=== PATIENT | male | born 1950 | race Caucasian/White ===

== ENCOUNTER 2020-08-01 20:40 | Observation (INO) ==
[2020-08-01] MEDS ORDERED: Ondansetron 4 MG/2 ML VIAL IVP ONE (21:20)
[2020-08-01] MEDS ORDERED: 0.9 % Sodium Chloride 1,000 ML IVC ONE (21:20)
[2020-08-01] MEDS ORDERED: Isovue-370 500 ML BOTTLE IVP ONE (21:20)
[2020-08-01 21:39] LABS: Basophils % 0.3 %; Eosinophils % 0.1 %; Hematocrit 37.8 % (37.5-50.1); Hemoglobin 13.4 g/dL (12.9-16.9); Immature Granulocytes % 0.9 % (0-4); Lymphocytes # 1.2 K/mcL (0.6-4.6); Lymphocytes % 7.8 %; Mean Corpuscular HGB Conc 35.4 g/dL (31.6-35.5); Mean Corpuscular Volume 90.2 fL (83.0-100.0); Mean Platelet Volume 10.1 fL (9.4-12.4); Monocytes # 0.6 K/mcL (0.0-1.3); Monocytes % 3.9 %; Neutrophils # 12.9 K/mcL (1.6-8.9); Platelet Count 175 K/mcL (140-400); Red Blood Count 4.19 M/mcL (4.19-5.50); Red Cell Distribution Width 12.4 % (11.5-14.5); White Blood Count 14.8 K/mcL (4.3-11.1)
[2020-08-01 22:00] LABS: Alanine Aminotransferase 18 Units/L (7-52); Albumin 4.5 g/dL (3.5-5.7); Albumin/Globulin Ratio 1.3 (1.1-2.2); Alkaline Phosphatase 65 Units/L (34-104); Aspartate Amino Transferase 15 Units/L (13-39); BUN/Creatinine Ratio 22 (6-26); Bilirubin,Total 2.3 mg/dL (0.3-1.0); Blood Urea Nitrogen 19 mg/dL (8-23); Calcium 10.2 mg/dL (8.6-10.3); Carbon Dioxide 18 mEq/L (23-29); Chloride 97 mEq/L (98-107); Globulin 3.5 g/dL (2.4-3.5); Glucose 297 mg/dL (70-105); Lipase < 3 Units/L (11-82); Magnesium 1.5 mg/dL (1.6-2.6); Osmolality,Calculated 287 (280-300); Potassium 3.2 mEq/L (3.5-5.1); Sodium 132 mEq/L (136-145); eGFR For African Americans > 60 (> 60); eGFR For Non-African Americans > 60 (> 60)
[2020-08-01 22:26] LABS: Bilirubin,Urine Negative (Negative); Blood,Urine Small (Negative); Clarity,Urine Clear (Clear); Color,Urine Yellow (Yellow); Glucose,Urine (UA) 500 mg/dL (Normal); Ketones,Urine 40 mg/dL (Negative); Leukocyte Esterase,Urine Negative (Negative); Nitrite,Urine Negative (Negative); PH,Urine 7.5 pH Units (5.0-8.0); Protein,Urine >=300 mg/dL (Neg-Trace); Specific Gravity,Urine 1.025 (1.010-1.025); Urobilinogen,Urine Normal (Normal)
[2020-08-01 22:33] LABS: Bacteria,Urine Few per hpf (None-Few); Mucus,Urine Few per lpf (None-Few); RBC,Urine 0-3 per hpf (0-3); Squamous Epithelial Cell,Urine Few per hpf (None-Few); WBC,Urine 0-3 per hpf (0-3)
[2020-08-02] MEDS ORDERED: 0.9 % Sodium Chloride 1,000 ML IVC ONE (00:57)
[2020-08-02] MEDS ORDERED: cefTRIAXone 1,000 MG in Water for inj. (sterile) 10 ML IVP ONE (00:59)
[2020-08-02] MEDS ORDERED: Azithromycin 500 MG in 0.9 % Sodium Chloride 250 ML IVPB ONE (00:59)
[2020-08-02] MEDS ORDERED: *HR* FentaNYL (PF) 100 MCG/2 ML VIAL IVP ONE (01:00)
[2020-08-02] MEDS ORDERED: Ondansetron 4 MG/2 ML VIAL IVP ONE (01:21)
[2020-08-02] MEDS ORDERED: *HR* OxyCODONE/APAP 5/325 TABLET PO ONE (01:22)
[2020-08-02 02:36] LABS: Adenovirus Not Detected (Not Detect); Bordetella Pertussis Not Detected (Not Detect); Chlamydophila pneumoniae Not Detected (Not Detect); Coronavirus 229E Not Detected (Not Detect); Coronavirus HKU1 Not Detected (Not Detect); Coronavirus NL63 Not Detected (Not Detect); Coronavirus OC43 Not Detected (Not Detect); Human Metapneumovirus Not Detected (Not Detect); Human Rhinovirus/Enterovirus Not Detected (Not Detect); Influenza A Subtype 2009 H1 Not Detected (Not Detect); Influenza B Not Detected (Not Detect); Mycoplasma pneumoniae Not Detected (Not Detect); Parainfluenza Virus 1 Not Detected (Not Detect); Parainfluenza Virus 2 Not Detected (Not Detect); Parainfluenza Virus 3 Not Detected (Not Detect); Parainfluenza Virus 4 Not Detected (Not Detect); Respiratory Syncytial Virus Not Detected (Not Detect); SARS-CoV-2 Not Detected (Not Detect)
[2020-08-02] MEDS ORDERED: Naloxone 0.4 MG/ML INJ IVP PRN (03:25)
[2020-08-02] MEDS ORDERED: Acetaminophen 325 MG TABLET PO PRN (03:25)
[2020-08-02] MEDS ORDERED: Ondansetron 4 MG/2 ML VIAL IVP PRN (03:25)
[2020-08-02] MEDS ORDERED: Ipratropium/Albuterol Neb 3 ML IH PRN (03:29)
[2020-08-02] MEDS ORDERED: *HR* Promethazine 25 MG/ML VIAL IVP PRN (04:00)
[2020-08-02] MEDS: 0.9 % Sodium Chloride 1,000 ML IVC SCH ×2 (04:05→16:09)
[2020-08-02] MEDS ORDERED: *HR* Dextrose 50 % in Water (Vial) 50 ML VIAL IVP PRN (04:21)
[2020-08-02] MEDS ORDERED: D5% in Water 1,000 ML IVC PRN (04:21)
[2020-08-02] MEDS ORDERED: Dextrose Gel 15 GM/37.5 ML TUBE PO PRN ×2 (04:21)
[2020-08-02 04:55] LABS: Protein/Creatinine Ratio,Urine 2.23 mg/mg (0.00-0.20)
[2020-08-02] MEDS: Insulin LISPRO 300 UNITS/3 ML VIAL SQ SCH ×4 (04:59→17:31)
[2020-08-02 05:25] LABS: Basophils % 0.1 %; Hematocrit 38.3 % (37.5-50.1); Hemoglobin 12.6 g/dL (12.9-16.9); Immature Granulocytes % 0.8 % (0-4); Lymphocytes # 0.9 K/mcL (0.6-4.6); Lymphocytes % 6.5 %; Mean Corpuscular HGB Conc 32.9 g/dL (31.6-35.5); Mean Corpuscular Volume 94.1 fL (83.0-100.0); Monocytes # 0.9 K/mcL (0.0-1.3); Neutrophils # 12.3 K/mcL (1.6-8.9); Platelet Count 161 K/mcL (140-400); Red Blood Count 4.07 M/mcL (4.19-5.50); Red Cell Distribution Width 12.5 % (11.5-14.5); Segmented Neutrophils % 86.6 %; White Blood Count 14.3 K/mcL (4.3-11.1)
[2020-08-02 05:30] LABS: INR 1.5; Prothrombin Time 16.5 Seconds (9.4-12.1)
[2020-08-02 05:45] LABS: BUN/Creatinine Ratio 20 (6-26); Blood Urea Nitrogen 19 mg/dL (8-23); Calcium 9.2 mg/dL (8.6-10.3); Carbon Dioxide 22 mEq/L (23-29); Chloride 101 mEq/L (98-107); Glucose 275 mg/dL (70-105); Magnesium 1.5 mg/dL (1.6-2.6); Osmolality,Calculated 292 (280-300); Phosphorous 3.8 mg/dL (2.7-4.5); Potassium 3.5 mEq/L (3.5-5.1); Sodium 135 mEq/L (136-145); eGFR For African Americans > 60 (> 60); eGFR For Non-African Americans > 60 (> 60)
[2020-08-02 07:44] LABS: Estimated Average Glucose 180 mg/dl
[2020-08-02] MEDS: carvediloL 6.25 MG TABLET PO SCH (08:13)
[2020-08-02] MEDS: Loratadine 10 MG TABLET PO SCH (08:13)
[2020-08-02] MEDS: Gabapentin 300 MG CAPSULE PO SCH ×3 (08:13→21:07)
[2020-08-02] MEDS: cefTRIAXone 1,000 MG in 0.9 % Sodium Chloride Mini Bag 100 ML IVPB SCH (08:14)
[2020-08-02] MEDS: Fluticasone Propionate Nasal 50 MCG/SPRAY BOTTLE NS SCH (08:14)
[2020-08-02] MEDS ORDERED: Azithromycin 500 MG in 0.9 % Sodium Chloride 250 ML IVPB SCH (09:00)
[2020-08-02] MEDS ORDERED: Isosorbide MONOnitrate (24 HR) 60 MG TAB.ER.24H PO SCH (21:00)
[2020-08-02] MEDS ORDERED: Finasteride 5 MG TABLET PO SCH (21:00)
[2020-08-02] MEDS ORDERED: Aspirin Enteric Coated 81 MG Tablet PO SCH (21:00)
[2020-08-03] MEDS: Artificial Tears SOLN 15 ML BOTTLE BOTH EYES SCH ×2 (05:55→07:49)
[2020-08-03 07:28] VITALS: BP 117/61
[2020-08-03] MEDS: carvediloL 6.25 MG TABLET PO SCH (07:47)
[2020-08-03] MEDS: cefTRIAXone 1,000 MG in 0.9 % Sodium Chloride Mini Bag 100 ML IVPB SCH (07:48)
[2020-08-03] MEDS: Gabapentin 300 MG CAPSULE PO SCH (07:48)
[2020-08-03] MEDS: Loratadine 10 MG TABLET PO SCH (07:48)
[2020-08-03] MEDS: Insulin LISPRO 300 UNITS/3 ML VIAL SQ SCH (07:49)
[2020-08-03] MEDS: Fluticasone Propionate Nasal 50 MCG/SPRAY BOTTLE NS SCH (07:49)
[2020-08-03 08:48] LABS: Hematocrit 34.1 % (37.5-50.1); Hemoglobin 11.5 g/dL (12.9-16.9); Mean Corpuscular HGB Conc 33.7 g/dL (31.6-35.5); Mean Corpuscular Hemoglobin 31.9 pg (28.0-33.3); Mean Corpuscular Volume 94.7 fL (83.0-100.0); Mean Platelet Volume 9.7 fL (9.4-12.4); Platelet Count 170 K/mcL (140-400)
[2020-08-03] MEDS ORDERED: INSULIN DEGLUDEC 52 UNIT SQ SCH (09:00)
[2020-08-03 09:07] LABS: BUN/Creatinine Ratio 26 (6-26); Blood Urea Nitrogen 32 mg/dL (8-23); Calcium 8.4 mg/dL (8.6-10.3); Carbon Dioxide 22 mEq/L (23-29); Chloride 107 mEq/L (98-107); Glucose 380 mg/dL (70-105); Osmolality,Calculated 303 (280-300); Potassium 3.6 mEq/L (3.5-5.1); Sodium 135 mEq/L (136-145); eGFR For African Americans > 60 (> 60); eGFR For Non-African Americans 59 (> 60)
== END 2020-08-03 10:30 | disposition home or self-care (01) ==
LOC: EMEROOARM 20:40 → 3BNU 20:40 → SUATTDRO 08-02 02:42 → 3BNU 08-02 03:05
PROVIDERS: ADMIT Internal Medicine; ATTEND Nurse Practitioner Adult Health

== ENCOUNTER 2020-12-02 08:28 | Inpatient (IN) ==
[2020-12-02] MEDS ORDERED: 0.9 % Sodium Chloride 1,000 ML IVC ONE ×2 (08:44→12:53)
[2020-12-02] MEDS ORDERED: Acetaminophen 325 MG TABLET PO ONE (08:46)
[2020-12-02 09:08] LABS: Basophils % 0.4 %; Eosinophils # 0.1 K/mcL (0.0-0.6); Eosinophils % 0.6 %; Hematocrit 36.2 % (37.5-50.1); Hemoglobin 12.1 g/dL (12.9-16.9); Immature Granulocytes % 0.3 % (0-4); Lymphocytes # 0.8 K/mcL (0.6-4.6); Lymphocytes % 7.2 %; Mean Corpuscular HGB Conc 33.4 g/dL (31.6-35.5); Mean Corpuscular Hemoglobin 31.2 pg (28.0-33.3); Mean Corpuscular Volume 93.3 fL (83.0-100.0); Mean Platelet Volume 9.9 fL (9.4-12.4); Monocytes # 0.8 K/mcL (0.0-1.3); Monocytes % 7.3 %; Neutrophils # 8.8 K/mcL (1.6-8.9); Platelet Count 151 K/mcL (140-400); Red Blood Count 3.88 M/mcL (4.19-5.50); Red Cell Distribution Width 13.1 % (11.5-14.5); Segmented Neutrophils % 84.2 %; White Blood Count 10.5 K/mcL (4.3-11.1)
[2020-12-02 09:15] LABS: INR 1.7; Prothrombin Time 19.8 Seconds (9.4-12.1)
[2020-12-02 09:27] LABS: BUN/Creatinine Ratio 24 (6-26); Blood Urea Nitrogen 25 mg/dL (8-23); Calcium 10.1 mg/dL (8.6-10.3); Carbon Dioxide 22 mEq/L (23-29); Chloride 104 mEq/L (98-107); Glucose 185 mg/dL (70-105); Osmolality,Calculated 293 (280-300); Potassium 3.9 mEq/L (3.5-5.1); Sodium 137 mEq/L (136-145); Troponin I < 0.03 ng/mL (< 0.04); eGFR For African Americans > 60 (> 60); eGFR For Non-African Americans > 60 (> 60)
[2020-12-02 11:17] LABS: Bilirubin,Urine Negative (Negative); Blood,Urine Negative (Negative); Clarity,Urine Clear (Clear); Color,Urine Light-Yellow (Yellow); Glucose,Urine (UA) Normal (Normal); Ketones,Urine Negative (Negative); Leukocyte Esterase,Urine Negative (Negative); Nitrite,Urine Negative (Negative); PH,Urine 7.5 pH Units (5.0-8.0); Protein,Urine Trace mg/dL (Neg-Trace); Specific Gravity,Urine 1.022 (1.010-1.025); Urobilinogen,Urine Normal (Normal)
[2020-12-02 13:19] LABS: Adenovirus Not Detected (Not Detect); Bordetella Pertussis Not Detected (Not Detect); Chlamydophila pneumoniae Not Detected (Not Detect); Coronavirus 229E Not Detected (Not Detect); Coronavirus HKU1 Not Detected (Not Detect); Coronavirus NL63 Not Detected (Not Detect); Coronavirus OC43 Not Detected (Not Detect); Human Metapneumovirus Not Detected (Not Detect); Human Rhinovirus/Enterovirus Not Detected (Not Detect); Influenza A Subtype 2009 H1 Not Detected (Not Detect); Influenza B Not Detected (Not Detect); Mycoplasma pneumoniae Not Detected (Not Detect); Parainfluenza Virus 1 Not Detected (Not Detect); Parainfluenza Virus 2 Not Detected (Not Detect); Parainfluenza Virus 3 Not Detected (Not Detect); Parainfluenza Virus 4 Not Detected (Not Detect); Respiratory Syncytial Virus Not Detected (Not Detect); SARS-CoV-2 Not Detected (Not Detect)
[2020-12-02] MEDS ORDERED: Ibuprofen 800 MG TABLET PO ONE (13:31)
[2020-12-02] MEDS ORDERED: Piperacillin/Tazobactam 3.375 GM in Water for inj. (sterile) 20 ML IVP ONE (13:31)
[2020-12-02] MEDS ORDERED: Vancomycin 1,750 MG/517.5 ML IV.SOLN IVPB ONE (13:45)
[2020-12-02] MEDS ORDERED: Naloxone 0.4 MG/ML INJ IVP PRN (14:24)
[2020-12-02] MEDS ORDERED: Dextrose Gel 15 GM/37.5 ML TUBE PO PRN ×2 (15:23)
[2020-12-02] MEDS ORDERED: D5% in Water 1,000 ML IVC PRN (15:23)
[2020-12-02] MEDS ORDERED: *HR* Dextrose 50 % in Water (Vial) 50 ML VIAL IVP PRN (15:23)
[2020-12-02] MEDS: Insulin LISPRO 300 UNITS/3 ML VIAL SUBQ SCH (16:04)
[2020-12-02 18:40] LABS: Estimated Average Glucose 189 mg/dl; Hemoglobin A1C 8.2 %
[2020-12-02] MEDS: Gabapentin 300 MG CAPSULE PO SCH (22:11)
[2020-12-02] MEDS: hydrALAZINE 25 MG TABLET PO SCH (22:11)
[2020-12-02] MEDS: Furosemide 40 MG TABLET PO SCH (22:12)
[2020-12-02] MEDS: Apixaban 5 MG TABLET PO SCH (22:12)
[2020-12-02] MEDS: Acetaminophen 325 MG TABLET PO PRN (23:46)
[2020-12-02] MEDS: GuaiFENesin Liq 200 MG/10 ML UDC PO PRN (23:46)
[2020-12-03] MEDS: Vancomycin 1,500 MG/265 ML IV.SOLN IVPB SCH ×2 (01:55→13:33)
[2020-12-03 05:09] LABS: Basophils % 0.1 %; Hematocrit 32.6 % (37.5-50.1); Hemoglobin 10.9 g/dL (12.9-16.9); Immature Granulocytes % 0.3 % (0-4); Lymphocytes # 0.8 K/mcL (0.6-4.6); Lymphocytes % 6.4 %; Mean Corpuscular HGB Conc 33.4 g/dL (31.6-35.5); Mean Corpuscular Hemoglobin 31.6 pg (28.0-33.3); Mean Corpuscular Volume 94.5 fL (83.0-100.0); Mean Platelet Volume 9.9 fL (9.4-12.4); Monocytes # 0.6 K/mcL (0.0-1.3); Monocytes % 5.2 %; Neutrophils # 10.6 K/mcL (1.6-8.9); Platelet Count 121 K/mcL (140-400); Red Blood Count 3.45 M/mcL (4.19-5.50); Red Cell Distribution Width 13.2 % (11.5-14.5); White Blood Count 12.1 K/mcL (4.3-11.1)
[2020-12-03 05:32] LABS: BUN/Creatinine Ratio 24 (6-26); Blood Urea Nitrogen 23 mg/dL (8-23); Calcium 8.8 mg/dL (8.6-10.3); Carbon Dioxide 21 mEq/L (23-29); Chloride 105 mEq/L (98-107); Glucose 330 mg/dL (70-105); Osmolality,Calculated 301 (280-300); Potassium 3.5 mEq/L (3.5-5.1); Sodium 137 mEq/L (136-145); eGFR For African Americans > 60 (> 60); eGFR For Non-African Americans > 60 (> 60)
[2020-12-03] MEDS: Insulin LISPRO 300 UNITS/3 ML VIAL SUBQ SCH ×4 (08:40→20:28)
[2020-12-03] MEDS: cefTRIAXone 1,000 MG in Water for inj. (sterile) 10 ML IVP SCH (08:40)
[2020-12-03] MEDS: Furosemide 40 MG TABLET PO SCH ×2 (08:41→16:50)
[2020-12-03] MEDS: Isosorbide MONOnitrate (24 HR) 60 MG TAB.ER.24H PO SCH (08:41)
[2020-12-03] MEDS: Apixaban 5 MG TABLET PO SCH ×2 (08:41→20:21)
[2020-12-03] MEDS: carvediloL 6.25 MG TABLET PO SCH ×2 (08:41→16:50)
[2020-12-03] MEDS: Azithromycin 250 MG TABLET PO SCH (08:41)
[2020-12-03] MEDS: Gabapentin 300 MG CAPSULE PO SCH ×3 (08:41→20:20)
[2020-12-03] MEDS: Aspirin Enteric Coated 81 MG Tablet PO SCH (08:41)
[2020-12-03] MEDS: hydrALAZINE 25 MG TABLET PO SCH ×3 (08:41→20:20)
[2020-12-03] MEDS ORDERED: Perflutren Lipid Microsphere 1.3 ML in 0.9 % Sodium Chloride 8.7 ML IVP PRN (14:36)
[2020-12-03] MEDS: Acetaminophen 325 MG TABLET PO PRN (20:21)
[2020-12-03] MEDS: GuaiFENesin Liq 200 MG/10 ML UDC PO PRN (20:21)
[2020-12-03] MEDS: Azelastine 0.1% Nasal Spray 30 ML BOTTLE NS SCH (20:40)
[2020-12-04 01:20] LABS: Basophils % 0.4 %; Eosinophils # 0.2 K/mcL (0.0-0.6); Eosinophils % 1.9 %; Hematocrit 30.8 % (37.5-50.1); Immature Granulocytes % 0.4 % (0-4); Lymphocytes % 20.2 %; Mean Corpuscular HGB Conc 32.5 g/dL (31.6-35.5); Mean Corpuscular Hemoglobin 30.4 pg (28.0-33.3); Mean Corpuscular Volume 93.6 fL (83.0-100.0); Mean Platelet Volume 10.1 fL (9.4-12.4); Monocytes % 9.4 %; Neutrophils # 6.8 K/mcL (1.6-8.9); Platelet Count 123 K/mcL (140-400); Red Blood Count 3.29 M/mcL (4.19-5.50); Red Cell Distribution Width 13.2 % (11.5-14.5); Segmented Neutrophils % 67.7 %; White Blood Count 10.1 K/mcL (4.3-11.1)
[2020-12-04 01:44] LABS: BUN/Creatinine Ratio 24 (6-26); Blood Urea Nitrogen 26 mg/dL (8-23); Calcium 8.4 mg/dL (8.6-10.3); Carbon Dioxide 25 mEq/L (23-29); Chloride 104 mEq/L (98-107); Glucose 169 mg/dL (70-105); Osmolality,Calculated 293 (280-300); Potassium 3.2 mEq/L (3.5-5.1); Sodium 137 mEq/L (136-145); eGFR For African Americans > 60 (> 60); eGFR For Non-African Americans > 60 (> 60)
[2020-12-04] MEDS: Vancomycin 1,500 MG/265 ML IV.SOLN IVPB SCH (02:08)
[2020-12-04] MEDS: Apixaban 5 MG TABLET PO SCH ×2 (09:18→22:27)
[2020-12-04] MEDS: Isosorbide MONOnitrate (24 HR) 60 MG TAB.ER.24H PO SCH (09:18)
[2020-12-04] MEDS: Azithromycin 250 MG TABLET PO SCH (09:18)
[2020-12-04] MEDS: Finasteride 5 MG TABLET PO SCH (09:18)
[2020-12-04] MEDS: Furosemide 40 MG TABLET PO SCH ×2 (09:18→16:53)
[2020-12-04] MEDS: carvediloL 6.25 MG TABLET PO SCH ×2 (09:19→16:53)
[2020-12-04] MEDS: cefTRIAXone 1,000 MG in Water for inj. (sterile) 10 ML IVP SCH (09:19)
[2020-12-04] MEDS: hydrALAZINE 25 MG TABLET PO SCH ×3 (09:19→22:27)
[2020-12-04] MEDS: Aspirin Enteric Coated 81 MG Tablet PO SCH (09:19)
[2020-12-04] MEDS: Gabapentin 300 MG CAPSULE PO SCH ×3 (09:19→22:27)
[2020-12-04] MEDS: Azelastine 0.1% Nasal Spray 30 ML BOTTLE NS SCH ×2 (09:21→22:28)
[2020-12-04] MEDS: Insulin LISPRO 300 UNITS/3 ML VIAL SUBQ SCH ×4 (09:22→22:28)
[2020-12-04] MEDS: Ampicillin 2 GM in 0.9 % Sodium Chloride Mini Bag 100 ML IVPB SCH ×5 (12:37→22:55)
[2020-12-05 01:30] LABS: Basophils % 0.4 %; Eosinophils # 0.3 K/mcL (0.0-0.6); Eosinophils % 3.4 %; Hematocrit 31.3 % (37.5-50.1); Hemoglobin 10.2 g/dL (12.9-16.9); Immature Granulocytes % 0.3 % (0-4); Lymphocytes # 1.9 K/mcL (0.6-4.6); Lymphocytes % 25.6 %; Mean Corpuscular HGB Conc 32.6 g/dL (31.6-35.5); Mean Corpuscular Hemoglobin 30.4 pg (28.0-33.3); Mean Corpuscular Volume 93.4 fL (83.0-100.0); Mean Platelet Volume 10.4 fL (9.4-12.4); Monocytes # 0.7 K/mcL (0.0-1.3); Monocytes % 9.1 %; Neutrophils # 4.6 K/mcL (1.6-8.9); Platelet Count 126 K/mcL (140-400); Red Blood Count 3.35 M/mcL (4.19-5.50); Red Cell Distribution Width 13.2 % (11.5-14.5); Segmented Neutrophils % 61.2 %; White Blood Count 7.5 K/mcL (4.3-11.1)
[2020-12-05 01:49] LABS: BUN/Creatinine Ratio 25 (6-26); Blood Urea Nitrogen 29 mg/dL (8-23); Calcium 8.5 mg/dL (8.6-10.3); Carbon Dioxide 23 mEq/L (23-29); Chloride 103 mEq/L (98-107); Glucose 240 mg/dL (70-105); Osmolality,Calculated 296 (280-300); Potassium 3.4 mEq/L (3.5-5.1); Sodium 136 mEq/L (136-145); eGFR For African Americans > 60 (> 60); eGFR For Non-African Americans > 60 (> 60)
[2020-12-05] MEDS: Ampicillin 2 GM in 0.9 % Sodium Chloride Mini Bag 100 ML IVPB SCH ×6 (04:11→23:45)
[2020-12-05] MEDS ORDERED: Potassium Chloride 20 MEQ, Lidocaine 1% 2 ML in 0.9 % Sodium Chloride 250 ML IVPB ONE (07:41)
[2020-12-05] MEDS: Azelastine 0.1% Nasal Spray 30 ML BOTTLE NS SCH ×2 (08:35→19:58)
[2020-12-05] MEDS: Insulin LISPRO 300 UNITS/3 ML VIAL SUBQ SCH ×4 (08:35→19:58)
[2020-12-05] MEDS: hydrALAZINE 25 MG TABLET PO SCH ×3 (08:41→19:59)
[2020-12-05] MEDS: Finasteride 5 MG TABLET PO SCH (08:41)
[2020-12-05] MEDS: Apixaban 5 MG TABLET PO SCH ×2 (08:41→19:59)
[2020-12-05] MEDS: Furosemide 40 MG TABLET PO SCH ×2 (08:41→15:51)
[2020-12-05] MEDS: Aspirin Enteric Coated 81 MG Tablet PO SCH (08:41)
[2020-12-05] MEDS: Isosorbide MONOnitrate (24 HR) 60 MG TAB.ER.24H PO SCH (08:42)
[2020-12-05] MEDS: Azithromycin 250 MG TABLET PO SCH (08:42)
[2020-12-05] MEDS: Gabapentin 300 MG CAPSULE PO SCH ×3 (08:42→19:59)
[2020-12-05] MEDS: carvediloL 6.25 MG TABLET PO SCH ×2 (08:42→15:40)
[2020-12-06] MEDS: Ampicillin 2 GM in 0.9 % Sodium Chloride Mini Bag 100 ML IVPB SCH ×6 (03:19→22:11)
[2020-12-06 07:45] LABS: Basophils % 0.6 %; Eosinophils # 0.3 K/mcL (0.0-0.6); Eosinophils % 4.3 %; Hematocrit 32.4 % (37.5-50.1); Hemoglobin 10.5 g/dL (12.9-16.9); Immature Granulocytes % 0.6 % (0-4); Lymphocytes # 1.8 K/mcL (0.6-4.6); Lymphocytes % 27.1 %; Mean Corpuscular HGB Conc 32.4 g/dL (31.6-35.5); Mean Corpuscular Hemoglobin 30.4 pg (28.0-33.3); Mean Corpuscular Volume 93.9 fL (83.0-100.0); Monocytes # 0.6 K/mcL (0.0-1.3); Monocytes % 8.7 %; Neutrophils # 3.8 K/mcL (1.6-8.9); Nucleated Red Blood Cells 0.3 /100 WBC (0); Platelet Count 131 K/mcL (140-400); Red Blood Count 3.45 M/mcL (4.19-5.50); Red Cell Distribution Width 13.2 % (11.5-14.5); Segmented Neutrophils % 58.7 %; White Blood Count 6.5 K/mcL (4.3-11.1)
[2020-12-06 08:03] LABS: BUN/Creatinine Ratio 28 (6-26); Blood Urea Nitrogen 28 mg/dL (8-23); Carbon Dioxide 27 mEq/L (23-29); Chloride 105 mEq/L (98-107); Glucose 204 mg/dL (70-105); Osmolality,Calculated 297 (280-300); Potassium 3.7 mEq/L (3.5-5.1); Sodium 138 mEq/L (136-145); eGFR For African Americans > 60 (> 60); eGFR For Non-African Americans > 60 (> 60)
[2020-12-06] MEDS: Gabapentin 300 MG CAPSULE PO SCH ×3 (08:42→20:31)
[2020-12-06] MEDS: Furosemide 40 MG TABLET PO SCH ×2 (08:42→16:38)
[2020-12-06] MEDS: Isosorbide MONOnitrate (24 HR) 60 MG TAB.ER.24H PO SCH (08:42)
[2020-12-06] MEDS: Insulin LISPRO 300 UNITS/3 ML VIAL SUBQ SCH ×4 (08:42→20:30)
[2020-12-06] MEDS: Apixaban 5 MG TABLET PO SCH ×2 (08:42→20:31)
[2020-12-06] MEDS: Aspirin Enteric Coated 81 MG Tablet PO SCH (08:42)
[2020-12-06] MEDS: carvediloL 6.25 MG TABLET PO SCH ×2 (08:43→16:37)
[2020-12-06] MEDS: hydrALAZINE 25 MG TABLET PO SCH ×3 (08:43→20:31)
[2020-12-06] MEDS: Finasteride 5 MG TABLET PO SCH (08:43)
[2020-12-06] MEDS: Azelastine 0.1% Nasal Spray 30 ML BOTTLE NS SCH ×2 (08:43→20:30)
[2020-12-06] MEDS: Azithromycin 250 MG TABLET PO SCH (08:43)
[2020-12-06] MEDS ORDERED: DiphenhydraMINE CREAM 28.4 GM TUBE TP PRN (14:42)
[2020-12-07] MEDS: Ampicillin 2 GM in 0.9 % Sodium Chloride Mini Bag 100 ML IVPB SCH ×6 (02:17→22:58)
[2020-12-07 05:41] LABS: Basophils # 0.1 K/mcL (0.0-0.2); Basophils % 0.7 %; Eosinophils # 0.4 K/mcL (0.0-0.6); Hematocrit 31.9 % (37.5-50.1); Hemoglobin 10.4 g/dL (12.9-16.9); Lymphocytes # 2.2 K/mcL (0.6-4.6); Lymphocytes % 24.8 %; Mean Corpuscular HGB Conc 32.6 g/dL (31.6-35.5); Mean Corpuscular Hemoglobin 30.6 pg (28.0-33.3); Mean Corpuscular Volume 93.8 fL (83.0-100.0); Mean Platelet Volume 9.9 fL (9.4-12.4); Monocytes # 0.7 K/mcL (0.0-1.3); Monocytes % 8.1 %; Neutrophils # 5.3 K/mcL (1.6-8.9); Platelet Count 164 K/mcL (140-400); Red Cell Distribution Width 13.1 % (11.5-14.5); Segmented Neutrophils % 60.4 %; White Blood Count 8.7 K/mcL (4.3-11.1)
[2020-12-07 05:56] LABS: BUN/Creatinine Ratio 30 (6-26); Blood Urea Nitrogen 31 mg/dL (8-23); Calcium 9.1 mg/dL (8.6-10.3); Carbon Dioxide 26 mEq/L (23-29); Chloride 105 mEq/L (98-107); Glucose 229 mg/dL (70-105); Osmolality,Calculated 302 (280-300); Potassium 3.6 mEq/L (3.5-5.1); Sodium 139 mEq/L (136-145); eGFR For African Americans > 60 (> 60); eGFR For Non-African Americans > 60 (> 60)
[2020-12-07] MEDS: Azelastine 0.1% Nasal Spray 30 ML BOTTLE NS SCH ×2 (08:08→20:19)
[2020-12-07] MEDS: Furosemide 40 MG TABLET PO SCH ×2 (08:09→18:01)
[2020-12-07] MEDS: Aspirin Enteric Coated 81 MG Tablet PO SCH (08:09)
[2020-12-07] MEDS: Gabapentin 300 MG CAPSULE PO SCH ×3 (08:09→20:20)
[2020-12-07] MEDS: carvediloL 6.25 MG TABLET PO SCH ×2 (08:09→18:01)
[2020-12-07] MEDS: Apixaban 5 MG TABLET PO SCH ×2 (08:09→20:20)
[2020-12-07] MEDS: Finasteride 5 MG TABLET PO SCH (08:09)
[2020-12-07] MEDS: Isosorbide MONOnitrate (24 HR) 60 MG TAB.ER.24H PO SCH (08:09)
[2020-12-07] MEDS: Insulin LISPRO 300 UNITS/3 ML VIAL SUBQ SCH ×4 (08:09→20:18)
[2020-12-07] MEDS: hydrALAZINE 25 MG TABLET PO SCH ×3 (08:10→20:19)
[2020-12-07] MEDS: Azithromycin 250 MG TABLET PO SCH (08:10)
[2020-12-08] MEDS: Ampicillin 2 GM in 0.9 % Sodium Chloride Mini Bag 100 ML IVPB SCH ×4 (02:32→14:48)
[2020-12-08 06:23] LABS: Basophils # 0.1 K/mcL (0.0-0.2); Basophils % 0.5 %; Eosinophils # 0.4 K/mcL (0.0-0.6); Eosinophils % 4.1 %; Hematocrit 31.7 % (37.5-50.1); Hemoglobin 10.5 g/dL (12.9-16.9); Immature Granulocytes % 1.1 % (0-4); Lymphocytes # 2.4 K/mcL (0.6-4.6); Lymphocytes % 24.7 %; Mean Corpuscular HGB Conc 33.1 g/dL (31.6-35.5); Mean Corpuscular Hemoglobin 31.1 pg (28.0-33.3); Mean Corpuscular Volume 93.8 fL (83.0-100.0); Mean Platelet Volume 9.8 fL (9.4-12.4); Monocytes # 0.7 K/mcL (0.0-1.3); Monocytes % 7.6 %; Neutrophils # 5.9 K/mcL (1.6-8.9); Platelet Count 163 K/mcL (140-400); Red Blood Count 3.38 M/mcL (4.19-5.50); Red Cell Distribution Width 13.2 % (11.5-14.5); White Blood Count 9.6 K/mcL (4.3-11.1)
[2020-12-08 06:41] LABS: BUN/Creatinine Ratio 29 (6-26); Blood Urea Nitrogen 27 mg/dL (8-23); Calcium 9.2 mg/dL (8.6-10.3); Carbon Dioxide 25 mEq/L (23-29); Chloride 103 mEq/L (98-107); Glucose 192 mg/dL (70-105); Osmolality,Calculated 296 (280-300); Potassium 3.5 mEq/L (3.5-5.1); Sodium 138 mEq/L (136-145); eGFR For African Americans > 60 (> 60); eGFR For Non-African Americans > 60 (> 60)
[2020-12-08] MEDS ORDERED: Lidocaine Viscous Oral Soln 15 ML SOLUTION ONE (08:40)
[2020-12-08] MEDS ORDERED: *HR* Midazolam HCl 5 MG/5 ML VIAL IVP ONE (08:41)
[2020-12-08] MEDS ORDERED: *HR* FentaNYL (PF) 100 MCG/2 ML VIAL ONE (08:41)
[2020-12-08] MEDS: hydrALAZINE 25 MG TABLET PO SCH ×2 (10:58→14:51)
[2020-12-08] MEDS: Apixaban 5 MG TABLET PO SCH (10:58)
[2020-12-08] MEDS: Azithromycin 250 MG TABLET PO SCH (10:58)
[2020-12-08] MEDS: Aspirin Enteric Coated 81 MG Tablet PO SCH (10:59)
[2020-12-08] MEDS: Gabapentin 300 MG CAPSULE PO SCH ×2 (10:59→14:47)
[2020-12-08] MEDS: Finasteride 5 MG TABLET PO SCH (10:59)
[2020-12-08] MEDS: Furosemide 40 MG TABLET PO SCH ×2 (11:00→17:04)
[2020-12-08] MEDS: carvediloL 6.25 MG TABLET PO SCH ×2 (11:00→17:04)
[2020-12-08] MEDS: Isosorbide MONOnitrate (24 HR) 60 MG TAB.ER.24H PO SCH (11:00)
[2020-12-08] MEDS: Azelastine 0.1% Nasal Spray 30 ML BOTTLE NS SCH (11:00)
[2020-12-08] MEDS: Insulin LISPRO 300 UNITS/3 ML VIAL SUBQ SCH ×3 (11:03→17:03)
[2020-12-08 14:58] VITALS: BP 140/65
== END 2020-12-08 18:25 | disposition home or self-care (01) | DRG 871 ==
LOC: 3BNU 08:28 → EMEROOARM 08:28 → 3BNU 15:25
PROVIDERS: ADMIT Internal Medicine; ATTEND Internal Medicine

== ENCOUNTER 2022-08-19 14:02 | Inpatient (IN) ==
[2022-08-19 15:53] LABS: Basophils % 0.2 %; Eosinophils # 0.1 K/mcL (0.0-0.6); Eosinophils % 0.4 %; Hematocrit 27.6 % (37.5-50.1); Hemoglobin 8.7 g/dL (12.9-16.9); Immature Granulocytes % 1.3 % (0-4); Lymphocytes # 1.2 K/mcL (0.6-4.6); Lymphocytes % 6.5 %; Mean Corpuscular HGB Conc 31.5 g/dL (31.6-35.5); Mean Corpuscular Hemoglobin 30.7 pg (28.0-33.3); Mean Corpuscular Volume 97.5 fL (83.0-100.0); Mean Platelet Volume 9.8 fL (9.4-12.4); Monocytes % 5.6 %; Neutrophils # 15.8 K/mcL (1.6-8.9); Platelet Count 151 K/mcL (140-400); Red Blood Count 2.83 M/mcL (4.19-5.50); Red Cell Distribution Width 13.2 % (11.5-14.5); White Blood Count 18.4 K/mcL (4.3-11.1)
[2022-08-19 16:17] LABS: BUN/Creatinine Ratio 21 (6-26); Blood Urea Nitrogen 25 mg/dL (8-23); Calcium 8.6 mg/dL (8.6-10.3); Carbon Dioxide 27 mEq/L (23-29); Chloride 99 mEq/L (98-107); Glucose 163 mg/dL (70-105); Osmolality,Calculated 282 (280-300); Potassium 4.5 mEq/L (3.5-5.1); Sodium 132 mEq/L (136-145)
[2022-08-19 16:43] LABS: Prothrombin Time 145.6 Seconds (9.4-12.1)
[2022-08-19 16:44] LABS: INR 13.3
[2022-08-19] MEDS ORDERED: Iopamidol - 370 500 ML MLS IVP ONE (18:23)
[2022-08-19 19:09] LABS: Alanine Aminotransferase 84 Units/L (7-52); Albumin 2.9 g/dL (3.5-5.7); Albumin/Globulin Ratio 0.8 (1.1-2.2); Alkaline Phosphatase 172 Units/L (34-104); Aspartate Amino Transferase 59 Units/L (13-39); Bilirubin,Direct 0.5 mg/dL (0.0-0.2); Bilirubin,Indirect 0.7 mg/dL (0.0-1.0); Bilirubin,Total 1.2 mg/dL (0.3-1.0); Globulin 3.7 g/dL (2.4-3.5); Lipase < 3 Units/L (11-82); Magnesium 1.7 mg/dL (1.6-2.6); Total Protein 6.6 g/dL (6.4-8.9)
[2022-08-19] MEDS ORDERED: Piperacillin/Tazobactam 3.375 GM in 0.9 % Sodium Chloride Mini Bag 100 ML IVPB ONE (21:05)
[2022-08-19] MEDS ORDERED: Clindamycin 600 MG/50 ML 600 MG/50 ML IV.SOLN IVPB STA (21:06)
[2022-08-19] MEDS ORDERED: Dextrose Gel 15 GM/37.5 ML TUBE PO PRN ×2 (22:22)
[2022-08-19] MEDS ORDERED: D5% in Water 1,000 ML IVC PRN (22:22)
[2022-08-19] MEDS ORDERED: *HR* Dextrose 50 % in Water (Syg) 50 ML SYRINGE IVP PRN (22:22)
[2022-08-19] MEDS ORDERED: Acetaminophen 325 MG TABLET PO PRN (22:25)
[2022-08-19] MEDS ORDERED: *HR* HYDROcodone/Acet 5/325 mg TABLET PO PRN (22:25)
[2022-08-19] MEDS ORDERED: Naloxone 0.4 MG/ML INJ IVP PRN (22:25)
[2022-08-19] MEDS ORDERED: *HR* OxyCODONE Immed Rel 5 MG TABLET PO PRN (22:25)
[2022-08-19] MEDS ORDERED: Melatonin 3 MG TABLET PO PRN (22:27)
[2022-08-19] MEDS ORDERED: Ondansetron 4 MG/2 ML VIAL IVP PRN (22:27)
[2022-08-19] MEDS ORDERED: 0.9 % Sodium Chloride 1,000 ML IVC SCH (22:30)
[2022-08-19] MEDS ORDERED: Vancomycin 2,000 MG/520 ML IV.SOLN IVPB ONE (23:00)
[2022-08-19 23:21] LABS: Immature Reticulocyte % 31.7 % (11.0-38.0); Retculocyte # 0.07 M/mcL (0.05-0.10); Reticulocyte % 2.6 % (1.6-2.8)
[2022-08-19 23:25] LABS: % Iron Saturation 8 % (20-55); Albumin 2.9 g/dL (3.5-5.7); Albumin/Globulin Ratio 0.8 (1.1-2.2); Bilirubin,Direct 0.4 mg/dL (0.0-0.2); Bilirubin,Indirect 0.6 mg/dL (0.0-1.0); Globulin 3.6 g/dL (2.4-3.5); Iron 13 mcg/dL (65-175); Lactate Dehydrogenase 263 Units/L (140-271); Total Protein 6.5 g/dL (6.4-8.9); Transferrin 116 mg/dL (203-362)
[2022-08-19 23:38] LABS: Thyroid Stimulating Hormone 1.337 mcIU/mL (0.340-5.600)
[2022-08-19 23:43] LABS: Ferritin 969 ng/mL (20-250)
[2022-08-20 03:43] LABS: Basophils % 0.2 %; Eosinophils # 0.1 K/mcL (0.0-0.6); Eosinophils % 0.6 %; Hematocrit 26.5 % (37.5-50.1); Hemoglobin 8.4 g/dL (12.9-16.9); Lymphocytes # 1.3 K/mcL (0.6-4.6); Lymphocytes % 6.8 %; Mean Corpuscular HGB Conc 31.7 g/dL (31.6-35.5); Mean Corpuscular Hemoglobin 30.7 pg (28.0-33.3); Mean Corpuscular Volume 96.7 fL (83.0-100.0); Mean Platelet Volume 9.8 fL (9.4-12.4); Monocytes % 5.1 %; Neutrophils # 16.1 K/mcL (1.6-8.9); Platelet Count 149 K/mcL (140-400); Red Blood Count 2.74 M/mcL (4.19-5.50); Red Cell Distribution Width 13.2 % (11.5-14.5); Segmented Neutrophils % 86.3 %; White Blood Count 18.7 K/mcL (4.3-11.1)
[2022-08-20 03:54] LABS: Prothrombin Time 62.1 Seconds (9.4-12.1)
[2022-08-20 03:55] LABS: INR 5.6
[2022-08-20 04:06] LABS: Albumin 2.8 g/dL (3.5-5.7); Albumin/Globulin Ratio 0.8 (1.1-2.2); Bilirubin,Total 0.9 mg/dL (0.3-1.0); Calcium 8.3 mg/dL (8.6-10.3); Globulin 3.4 g/dL (2.4-3.5); Potassium 4.3 mEq/L (3.5-5.1); Total Protein 6.2 g/dL (6.4-8.9)
[2022-08-20] MEDS ORDERED: Clindamycin 600 MG/50 ML 600 MG/50 ML IV.SOLN IVPB SCH (08:00)
[2022-08-20] MEDS ORDERED: Piperacillin/Tazobactam 3.375 GM in 0.9 % Sodium Chloride Mini Bag 100 ML IVPB SCH (08:00)
[2022-08-20 10:21] LABS: INR 4.8
[2022-08-20] MEDS ORDERED: Vancomycin 1,500 MG/265 ML IV.SOLN IVPB SCH (11:00)
[2022-08-20] MEDS ORDERED: *HR* Etomidate 40 MG/20 ML VIAL IVP ONE (11:01)
[2022-08-20] MEDS ORDERED: *HR* FentaNYL (PF) 100 MCG/2 ML VIAL ONE (11:02)
[2022-08-20] MEDS ORDERED: Lidocaine -MPF 2% 2 ML VIAL ONE (11:17)
[2022-08-20] MEDS ORDERED: *HR* Succinylcholine 200 MG/10 ML VIAL IVP ONE (11:17)
[2022-08-20] MEDS ORDERED: Ondansetron 4 MG/2 ML VIAL ONE (11:17)
[2022-08-20] MEDS ORDERED: *HR* Rocuronium Bromide 50 MG/5 ML VIAL ONE (11:17)
[2022-08-20] MEDS ORDERED: Ondansetron 4 MG/2 ML VIAL IVP PRN (14:01)
[2022-08-20] MEDS ORDERED: D5% in Water 1,000 ML IVC PRN ×2 (14:01→15:59)
[2022-08-20] MEDS ORDERED: Dextrose Gel 15 GM/37.5 ML TUBE PO PRN ×4 (14:01→15:59)
[2022-08-20] MEDS ORDERED: *HR* Dextrose 50 % in Water (Syg) 50 ML SYRINGE IVP PRN (14:01)
[2022-08-20] MEDS ORDERED: Naloxone 0.4 MG/ML INJ IVP PRN (14:01)
[2022-08-20] MEDS ORDERED: Ondansetron ODT 4 MG TAB.RAPDIS SL PRN (15:54)
[2022-08-20] MEDS ORDERED: polyethylene glycoL 3350 17 GM POWD.PACK PO PRN (15:54)
[2022-08-20] MEDS: Finasteride 5 MG TABLET PO SCH (17:28)
[2022-08-20] MEDS: Furosemide 40 MG TABLET PO SCH (17:28)
[2022-08-20] MEDS: carvediloL 6.25 MG TABLET PO SCH (17:28)
[2022-08-20] MEDS: Aspirin Enteric Coated 81 MG Tablet PO SCH (17:28)
[2022-08-20] MEDS: Piperacillin/Tazobactam 3.375 GM in 0.9 % Sodium Chloride Mini Bag 100 ML IVPB SCH (17:30)
[2022-08-20] MEDS: Clindamycin 600 MG/50 ML 600 MG/50 ML IV.SOLN IVPB SCH (17:30)
[2022-08-20] MEDS: Insulin LISPRO 300 UNITS/3 ML VIAL SUBQ SCH ×2 (17:57→22:49)
[2022-08-20] MEDS: Isosorbide MONOnitrate (24 HR) 60 MG TAB.ER.24H PO SCH (22:46)
[2022-08-20] MEDS: Azelastine 0.1% Nasal Spray 30 ML BOTTLE NS SCH (22:46)
[2022-08-20] MEDS: Melatonin 3 MG TABLET PO PRN (22:46)
[2022-08-20] MEDS: Gabapentin 300 MG CAPSULE PO SCH (22:47)
[2022-08-20] MEDS: Sucralfate 1 GM TABLET PO SCH (22:47)
[2022-08-20] MEDS: Magnesium Oxide 400 MG TABLET PO SCH (22:47)
[2022-08-20] MEDS: Vancomycin 1,500 MG/265 ML IV.SOLN IVPB SCH (22:48)
[2022-08-21] MEDS: Piperacillin/Tazobactam 3.375 GM in 0.9 % Sodium Chloride Mini Bag 100 ML IVPB SCH ×3 (01:30→16:10)
[2022-08-21] MEDS: Clindamycin 600 MG/50 ML 600 MG/50 ML IV.SOLN IVPB SCH ×3 (01:30→16:09)
[2022-08-21 05:50] LABS: Basophils % 0.1 %; Hematocrit 25.5 % (37.5-50.1); Hemoglobin 8.2 g/dL (12.9-16.9); Immature Granulocytes % 1.4 % (0-4); Lymphocytes % 5.9 %; Mean Corpuscular HGB Conc 32.2 g/dL (31.6-35.5); Mean Corpuscular Hemoglobin 30.4 pg (28.0-33.3); Mean Corpuscular Volume 94.4 fL (83.0-100.0); Mean Platelet Volume 9.8 fL (9.4-12.4); Monocytes # 0.6 K/mcL (0.0-1.3); Monocytes % 3.5 %; Neutrophils # 14.9 K/mcL (1.6-8.9); Platelet Count 171 K/mcL (140-400); Red Cell Distribution Width 13.3 % (11.5-14.5); Segmented Neutrophils % 89.1 %; White Blood Count 16.7 K/mcL (4.3-11.1)
[2022-08-21 05:58] LABS: INR 3.1; Prothrombin Time 33.9 Seconds (9.4-12.1)
[2022-08-21 06:13] LABS: Calcium 8.3 mg/dL (8.6-10.3); Potassium 4.5 mEq/L (3.5-5.1)
[2022-08-21] MEDS: Multivit/Ca/Min/Fe/FA 1 TAB TABLET PO SCH (08:28)
[2022-08-21] MEDS: Finasteride 5 MG TABLET PO SCH (08:28)
[2022-08-21] MEDS: Aspirin Enteric Coated 81 MG Tablet PO SCH (08:28)
[2022-08-21] MEDS: carvediloL 6.25 MG TABLET PO SCH ×2 (08:28→16:09)
[2022-08-21] MEDS: Loratadine 10 MG TABLET PO SCH (08:28)
[2022-08-21] MEDS: Sucralfate 1 GM TABLET PO SCH ×2 (08:28→22:44)
[2022-08-21] MEDS: Furosemide 40 MG TABLET PO SCH ×2 (08:28→16:09)
[2022-08-21] MEDS: Gabapentin 300 MG CAPSULE PO SCH ×3 (08:28→22:43)
[2022-08-21] MEDS: Magnesium Oxide 400 MG TABLET PO SCH ×3 (08:28→22:43)
[2022-08-21] MEDS: Azelastine 0.1% Nasal Spray 30 ML BOTTLE NS SCH ×2 (08:31→22:42)
[2022-08-21] MEDS: Insulin Degludec [Tresiba Flextouch U-200] SUBQ SCH (08:34)
[2022-08-21] MEDS: Insulin LISPRO 300 UNITS/3 ML VIAL SUBQ SCH ×7 (08:36→22:45)
[2022-08-21] MEDS: Vancomycin 1,500 MG/265 ML IV.SOLN IVPB SCH (14:11)
[2022-08-21] MEDS ORDERED: *HR* Warfarin 2.5 MG TABLET PO ONE (18:00)
[2022-08-21] MEDS ORDERED: Warfarin perPT PO PRN (18:00)
[2022-08-21] MEDS: Isosorbide MONOnitrate (24 HR) 60 MG TAB.ER.24H PO SCH (22:44)
[2022-08-21] MEDS: Melatonin 3 MG TABLET PO PRN (22:44)
[2022-08-22] MEDS: Clindamycin 600 MG/50 ML 600 MG/50 ML IV.SOLN IVPB SCH ×2 (00:30→08:02)
[2022-08-22] MEDS: Piperacillin/Tazobactam 3.375 GM in 0.9 % Sodium Chloride Mini Bag 100 ML IVPB SCH ×2 (00:30→08:03)
[2022-08-22 01:31] LABS: Basophils % 0.2 %; Eosinophils # 0.1 K/mcL (0.0-0.6); Eosinophils % 0.5 %; Hematocrit 24.8 % (37.5-50.1); Hemoglobin 7.9 g/dL (12.9-16.9); Immature Granulocytes % 1.8 % (0-4); Lymphocytes # 2.1 K/mcL (0.6-4.6); Lymphocytes % 13.9 %; Mean Corpuscular HGB Conc 31.9 g/dL (31.6-35.5); Mean Corpuscular Hemoglobin 30.7 pg (28.0-33.3); Mean Corpuscular Volume 96.5 fL (83.0-100.0); Mean Platelet Volume 9.8 fL (9.4-12.4); Monocytes # 0.8 K/mcL (0.0-1.3); Monocytes % 5.2 %; Platelet Count 181 K/mcL (140-400); Red Blood Count 2.57 M/mcL (4.19-5.50); Red Cell Distribution Width 13.4 % (11.5-14.5); Segmented Neutrophils % 78.4 %; White Blood Count 15.3 K/mcL (4.3-11.1)
[2022-08-22 01:41] LABS: INR 6.6
[2022-08-22 01:42] LABS: Prothrombin Time 72.2 Seconds (9.4-12.1)
[2022-08-22 01:51] LABS: Calcium 8.2 mg/dL (8.6-10.3); Potassium 4.3 mEq/L (3.5-5.1)
[2022-08-22] MEDS: Vancomycin 1,500 MG/265 ML IV.SOLN IVPB SCH (02:41)
[2022-08-22 06:31] LABS: Hematocrit RBC Folate 27.6 %
[2022-08-22] MEDS ORDERED: 0.9 % Sodium Chloride 1,000 ML IVC SCH (08:00)
[2022-08-22] MEDS: Sucralfate 1 GM TABLET PO SCH ×2 (08:04→21:10)
[2022-08-22] MEDS: Azelastine 0.1% Nasal Spray 30 ML BOTTLE NS SCH ×2 (08:04→21:12)
[2022-08-22] MEDS: Loratadine 10 MG TABLET PO SCH (08:04)
[2022-08-22] MEDS: Finasteride 5 MG TABLET PO SCH (08:04)
[2022-08-22] MEDS: Multivit/Ca/Min/Fe/FA 1 TAB TABLET PO SCH (08:04)
[2022-08-22] MEDS: Gabapentin 300 MG CAPSULE PO SCH ×3 (08:04→21:11)
[2022-08-22] MEDS: Magnesium Oxide 400 MG TABLET PO SCH ×3 (08:04→21:11)
[2022-08-22] MEDS: carvediloL 6.25 MG TABLET PO SCH ×2 (08:04→17:35)
[2022-08-22] MEDS: Aspirin Enteric Coated 81 MG Tablet PO SCH (08:04)
[2022-08-22] MEDS: Insulin Degludec [Tresiba Flextouch U-200] SUBQ SCH (08:08)
[2022-08-22] MEDS: Insulin LISPRO 300 UNITS/3 ML VIAL SUBQ SCH ×7 (08:09→21:00)
[2022-08-22] MEDS: Lactobacillus 1 EACH CAP.SPRINK PO SCH ×2 (10:57→21:11)
[2022-08-22] MEDS: Amoxicillin 500 MG CAPSULE PO SCH (14:59)
[2022-08-22] MEDS: Melatonin 3 MG TABLET PO PRN (21:11)
[2022-08-22] MEDS: Isosorbide MONOnitrate (24 HR) 60 MG TAB.ER.24H PO SCH (21:11)
[2022-08-23] MEDS: Amoxicillin 500 MG CAPSULE PO SCH ×2 (00:24→10:13)
[2022-08-23 04:10] LABS: Basophils # 0.1 K/mcL (0.0-0.2); Basophils % 0.4 %; Eosinophils # 0.2 K/mcL (0.0-0.6); Eosinophils % 1.1 %; Hematocrit 25.7 % (37.5-50.1); Hemoglobin 8.2 g/dL (12.9-16.9); Immature Granulocytes % 2.6 % (0-4); Lymphocytes # 2.2 K/mcL (0.6-4.6); Lymphocytes % 14.1 %; Mean Corpuscular HGB Conc 31.9 g/dL (31.6-35.5); Mean Corpuscular Hemoglobin 30.8 pg (28.0-33.3); Mean Corpuscular Volume 96.6 fL (83.0-100.0); Mean Platelet Volume 9.4 fL (9.4-12.4); Monocytes % 6.2 %; Nucleated Red Blood Cells 0.1 /100 WBC (0); Platelet Count 212 K/mcL (140-400); Red Blood Count 2.66 M/mcL (4.19-5.50); Red Cell Distribution Width 13.7 % (11.5-14.5); Segmented Neutrophils % 75.6 %; White Blood Count 15.9 K/mcL (4.3-11.1)
[2022-08-23 04:22] LABS: Prothrombin Time 74.4 Seconds (9.4-12.1)
[2022-08-23 04:23] LABS: INR 6.8
[2022-08-23 04:29] LABS: Calcium 8.4 mg/dL (8.6-10.3); Potassium 4.2 mEq/L (3.5-5.1)
[2022-08-23] MEDS: Insulin LISPRO 300 UNITS/3 ML VIAL SUBQ SCH ×7 (08:29→20:06)
[2022-08-23] MEDS: Azelastine 0.1% Nasal Spray 30 ML BOTTLE NS SCH ×2 (08:29→20:06)
[2022-08-23] MEDS: Gabapentin 300 MG CAPSULE PO SCH ×3 (08:30→20:07)
[2022-08-23] MEDS: Lactobacillus 1 EACH CAP.SPRINK PO SCH ×2 (08:30→20:07)
[2022-08-23] MEDS: Finasteride 5 MG TABLET PO SCH (08:30)
[2022-08-23] MEDS: Magnesium Oxide 400 MG TABLET PO SCH ×3 (08:30→20:07)
[2022-08-23] MEDS: Loratadine 10 MG TABLET PO SCH (08:30)
[2022-08-23] MEDS: Sucralfate 1 GM TABLET PO SCH ×2 (08:30→20:07)
[2022-08-23] MEDS: carvediloL 6.25 MG TABLET PO SCH ×2 (08:30→16:50)
[2022-08-23] MEDS: Insulin Degludec [Tresiba Flextouch U-200] SUBQ SCH (08:31)
[2022-08-23] MEDS: Multivit/Ca/Min/Fe/FA 1 TAB TABLET PO SCH (08:31)
[2022-08-23] MEDS: Aspirin Enteric Coated 81 MG Tablet PO SCH (08:31)
[2022-08-23] MEDS: Vancomycin 1,500 MG/265 ML IV.SOLN IVPB SCH (10:16)
[2022-08-23] MEDS: Isosorbide MONOnitrate (24 HR) 60 MG TAB.ER.24H PO SCH (20:07)
[2022-08-23] MEDS: Melatonin 3 MG TABLET PO PRN (20:07)
[2022-08-24 02:35] LABS: Basophils # 0.1 K/mcL (0.0-0.2); Basophils % 0.4 %; Eosinophils # 0.2 K/mcL (0.0-0.6); Eosinophils % 1.2 %; Hematocrit 26.6 % (37.5-50.1); Hemoglobin 8.3 g/dL (12.9-16.9); Immature Granulocytes % 2.4 % (0-4); Lymphocytes # 1.9 K/mcL (0.6-4.6); Lymphocytes % 14.7 %; Mean Corpuscular HGB Conc 31.2 g/dL (31.6-35.5); Mean Corpuscular Hemoglobin 30.2 pg (28.0-33.3); Mean Corpuscular Volume 96.7 fL (83.0-100.0); Mean Platelet Volume 9.1 fL (9.4-12.4); Monocytes # 0.8 K/mcL (0.0-1.3); Monocytes % 5.8 %; Neutrophils # 9.7 K/mcL (1.6-8.9); Platelet Count 187 K/mcL (140-400); Red Blood Count 2.75 M/mcL (4.19-5.50); Red Cell Distribution Width 13.7 % (11.5-14.5); Segmented Neutrophils % 75.5 %; White Blood Count 12.9 K/mcL (4.3-11.1)
[2022-08-24 02:45] LABS: INR 2.4; Prothrombin Time 26.2 Seconds (9.4-12.1)
[2022-08-24 02:49] LABS: Calcium 8.3 mg/dL (8.6-10.3); Potassium 4.3 mEq/L (3.5-5.1)
[2022-08-24] MEDS ORDERED: *HR* Enoxaparin 150 MG/ML SYRINGE SQ SCH (07:41)
[2022-08-24] MEDS: Gabapentin 300 MG CAPSULE PO SCH (09:17)
[2022-08-24] MEDS: Insulin LISPRO 300 UNITS/3 ML VIAL SUBQ SCH ×4 (09:17→12:14)
[2022-08-24] MEDS: Sucralfate 1 GM TABLET PO SCH (09:18)
[2022-08-24] MEDS: Finasteride 5 MG TABLET PO SCH (09:18)
[2022-08-24] MEDS: Lactobacillus 1 EACH CAP.SPRINK PO SCH (09:18)
[2022-08-24] MEDS: Multivit/Ca/Min/Fe/FA 1 TAB TABLET PO SCH (09:18)
[2022-08-24] MEDS: carvediloL 6.25 MG TABLET PO SCH (09:18)
[2022-08-24] MEDS: Magnesium Oxide 400 MG TABLET PO SCH (09:18)
[2022-08-24] MEDS: Aspirin Enteric Coated 81 MG Tablet PO SCH (09:19)
[2022-08-24] MEDS: Loratadine 10 MG TABLET PO SCH (09:19)
[2022-08-24] MEDS: Insulin Degludec [Tresiba Flextouch U-200] SUBQ SCH (09:23)
[2022-08-24] MEDS: Azelastine 0.1% Nasal Spray 30 ML BOTTLE NS SCH (09:23)
[2022-08-24 11:23] VITALS: BP 118/64; PULSE 82; TEMP 98.2; O2SAT 94
== END 2022-08-24 15:14 | disposition home or self-care (01) | DRG 345 ==
LOC: EMEROOARM 14:02 → 2ANU 14:02 → OBSVTOIN 21:10 → SUATTDRO 21:10 → 2ANU 22:21
PROVIDERS: ADMIT Internal Medicine; ATTEND Internal Medicine